=== PATIENT | female | born 1995 | race Caucasian/White ===

== ENCOUNTER 2016-11-19 13:31 | Outpatient (CLI) | payer OTHER ==
[2015-10-19 23:19] VITALS: BP 125/63
--- NOTE | 2016-11-20 12:31 | OP Clinic Progress Note ---
REASON FOR VISIT: This 21-year-old female has been swimming a lot this summer and she has developed left-sided ear pain. She had reduced hearing. She had a severe left-sided otitis externa with marked edema and erythema totally closing the left ear canal. Under the microscope, I suctioned, debrided, and cleaned the left ear canal. I was only able to use a number 3 sucker to very lightly clean up some of the microscopic debris. There was no perforation of the eardrum. I placed gentamicin ointment and Lotrisone lotion in the ear. A wick was then placed after that.. PLAN: She was given a prescription for Septra and she says she has no known antibiotic allergies. I have asked her to check back in my clinic in 48 hours for changing the wick. She is to keep water out of the ear. cc: Dr. Stefano ROBERTSON
== END 2016-11-19 13:32 ==
LOC: ENT 13:31
PROVIDERS: ATTEND Otolaryngology
DX: H60.8X2 Other otitis externa, left ear (principal)
CPT/HCPCS: 99214

== ENCOUNTER 2016-12-10 14:00 | Outpatient (CLI) | payer OTHER ==
[2015-10-19 23:19] VITALS: BP 125/63
--- NOTE | 2016-12-16 12:09 | OP Clinic Progress Note ---
REASON FOR VISIT: Sushma is seen in follow up of several weeks' treatment with incision and drainage of a left-sided otitis externa. Almost all the pain really is gone subjectively. She still feels like there is some muffling of the hearing. She acknowledges that her left ear has been somewhat the poor hearing ear for many years. By otoscopy, the left ear canal otitis externa that was quite severe has resolved. The left eardrum is mildly retracted but I do not see any middle ear fluid. The Garcia of the tuning forks refers to the right ear. The right eardrum and right ear canal are normal. Clinically, there is a mild hearing loss from the subjective point of view. The otitis externa has essentially resolved PLAN: She does not believe she needs additional treatment for the otitis externa. I recommended that she have a follow up audiogram in 2 or 3 weeks and arrangements are being made in that regard. cc: Dr. Stefano Hess [facility]
== END 2016-12-10 14:02 ==
LOC: ENT 14:00
PROVIDERS: ATTEND Otolaryngology
DX: H60.92 Unspecified otitis externa, left ear (principal)
CPT/HCPCS: 99214

== ENCOUNTER 2018-12-22 13:29 | Emergency (ER) | payer OTHER ==
[2018-12-22] MEDS ORDERED: 0.9 % SODIUM CHLORIDE 1,000 ML IV ONE ×2 (13:30→13:44)
--- NOTE | 2018-12-22 13:52 | ED Physician Documentation ---
Contractions (Preg.> 20 wks) - HISTORIAN Historian: patient - HPI Chief Complaint: OB/Uterine Contractions Additional Information: Patient is a 23 year old female that presents to the ER with vaginal pressure- seen at urgent care today in [place] for UTI and had a positive test- she states her last menses was in October but always irregular. She got home and started to feel vaginal pressure. She did not know she was . She is Grav 5 miscarriage 4. Upon nursing exam RN noted feet. "Upon my exam- feet were noted" without movement-patient denies contractions- she stated that she felt a "gush" of fluid last night and did not think anything of it and put a pad on. After noting feet, Dr. Rangel was contacted and arrived to ER within minutes. Onset: just prior to arrival Timing: gradual onset Severity: severe - Context Contractions/Pelvic Pain: No Strength: weak (describes as slight pressure) Vaginal Bleeding Amount: none Amniotic Membrane Fluid Amount: other (Pt states that she felt a "gush" of fluid last night- wasn't sure what it was.) - History Where was Test Done: clinic (urine) (Urgent care earlier today) Care: No Last Ultrasound Completed When: 12/22/18 History of : other (Miscarriage) : 5 Para: 0 : 4 - Problems Problems w/ Current : other (Found out today about ) Problems w/ Prior : other (miscarriage x 4) - ROS CONST: denies: fever EYES/ENT: none CVS/RESP: none GI/: denies: nausea, vomiting MS/SKIN/LYMPH: denies: leg swelling NEURO/PSYCH: none - PAST HX Past History: spontaneous (x 4) Surgeries/Procedures: dilation, curettage Immunizations: UTD Allergies/Adverse Reactions: Allergies Allergy/AdvReac Type Severity Reaction Status Date / Time tramadol Allergy Verified 12/22/18 14:02 Home Medications: Ambulatory Orders Medication Instructions Recorded Cephalexin [Keflex] 500 mg PO BID 12/22/18 - SOCIAL HX Smoking History: less than 1 pack/day Alcohol Use: none Drug Use: none - FAMILY HX Family History: none - VITAL SIGNS Vital Signs: Vital Signs Temp Pulse Resp BP Pulse Ox 125/63 10/19/15 23:15 - REVIEWED ASSESSMENTS Nursing Assessment Reviewed: Yes Vitals Reviewed: Yes Progress - Progress Progress: 13:[address] Rangel and he presented within 2 minutes to ER 14:04 Contacted [facility] for transfer- spoke to Toney HERBERT, Engineering Manager 14:25 Dr. Hess accepted- EMS is loading patient- Dr. Rangel will ride with patient- patient is doing very well- she is not in any acute distress- still just feels a little pressure. ED Results Lab/Radiology - Radiology Radiology Impressions: Exam: Limited obstetrical ultrasound. History: Abdominal pain. Discharge. Real-time grayscale imaging of the gravid uterus is performed. No previous studies are available for comparison. A single fetus in breech position is identified. feet are noted be within the vaginal vault. heart rate is 170 beats per minute. No amniotic fluid is identified. Impression: Findings suggestive of impending breech delivery. heart rate is 170 beats per minute. Oligohydramnios - Orders Orders: ED Orders Category Date Time Status CBC/PLATELET/DIFF Stat Lab 12/22/18 13:42 Ordered CMP Stat Lab 12/22/18 13:42 Ordered HCG QUANTITATIVE Stat Lab 12/22/18 13:42 Ordered Uterine Contraction Physical - EXAM General Appearance: alert, mild distress EENT: eye inspection normal, ENT inspection normal, no signs of dehydration, DRU Neck: nml inspection Resp/CVS: breath sounds nml, heart sounds nml Abdomen: gravid uterus Extremities: non-tender, normal range of motion Neuro/Psych: oriented x3, CN's nml as tested, motor nml, sensation nml, mood/affect nml - Pelvic Exam Pelvic Exam: other (breech- both feet out) Uterus Position: Below Umbilicus Heart Tone: 171 (with ultrasound) Discharge Clincal Impression: Breech presentation of fetus Referrals: Stefano Hess MD [Primary Care Provider] - 2 Days Condition: Stable Disposition: 02 XFER [facility]M HOSP Decision to Admit: NO Decision Time: 14:10
[2018-12-22 14:04] LABS: eGFR (Non-African) > 60
[2018-12-22 14:18] LABS: SEGMENTED NEUTROPHILS % 78 % (39-79)
[2018-12-22 15:16] VITALS: BP 106/62
--- NOTE | 2018-12-22 17:02 | Diagnostic Imaging Report ---
AVELINO DELGADO [facility] [address] [facility] [address] [address] Report Submission Date: Dec 22, 2018 2:18:44 PM CDT Patient Study Name: MICHAEL CLARK Date: Dec 22, 2018 1:53:33 PM CDT Modality Type: US\SR Gender: F Description: US FIRST TRIMESTER : 89 Institution: [facility] Physician: AVELINO DELGADO Exam: Limited obstetrical ultrasound. History: Abdominal pain. Discharge. Real-time grayscale imaging of the gravid uterus is performed. No previous studies are available for comparison. A single fetus in breech position is identified. feet are noted be within the vaginal vault. heart rate is 170 beats per minute. No amniotic fluid is identified. Impression: Findings suggestive of impending breech delivery. heart rate is 170 beats per minute. Oligohydramnios Electronically signed on Dec 22, 2018 2:18:44 PM CDT by: Curtis ROBERTSON
== END 2018-12-22 14:10 | disposition short-term general hospital (02) ==
LOC: ED 13:29
DX: O32.1XX0 Maternal care for breech presentation, not applicable or unspecified (principal); Z3A.00 Weeks of gestation of pregnancy not specified
CPT/HCPCS: 76805; 80053; 84702; 85025; 96360; 99283; J7030; S1016